=== PATIENT | male | born 1945 | race Caucasian/White ===

== ENCOUNTER 2016-06-17 13:55 | Outpatient (CLI) | payer MEDICARE ==
[2016-06-18 17:28] LABS: HIV (1/2) Antibody/Antigen Non-Reactive (NonReactive); HIV 1/2 INDEX 0.11 S/CO (<1.00)
[2016-06-20 16:21] LABS: Chlamydia by PCR Not Detected (NotDetected); GC by PCR Not Detected (NotDetected)
== END 2016-06-17 13:56 | disposition home or self-care (01) ==
LOC: MADLAB 13:55
PROVIDERS: ATTEND Family Medicine
DX: Z11.3 Encounter for screening for infections with a predominantly sexual mode of transmission (principal)
CPT/HCPCS: 36415; 86592; 87389; 87491; 87591

== ENCOUNTER 2017-07-17 13:13 | Emergency (ER) | payer MEDICARE ==
[~2017-07-17 13:13] MED LIST: Sodium Chloride 0.9% 1,000 ML BAG ONE
[2017-07-17 14:17] LABS: #Basophils 0.1 thou/uL (0.0-0.2); #Eosinphils 0.1 thou/uL (0.0-0.7); #Lymphocytes 0.9 thou/uL (1.20-3.40); #Monocytes 0.8 thou/uL (0.11-0.59); #Neutrophils 4.8 thou/uL (1.40-6.50); %Basophils 1.1 % (0.0-1.0); %Eosinophils 1.1 % (0.0-10.0); %Monocytes 11.3 % (0.0-10.0); %Neutrophils 72.5 % (42.0-75.0); Mean Corpuscular HGB CONC 34.3 g/dL (32.0-36.0); Mean Corpuscular Hemoglobin 31.2 pg (27.0-31.0); Mean Corpuscular Volume 90.9 fl (80.0-94.0); Mean Platelet Volume 6.7 fL (7.4-10.4); Platelet Count 194 thou/uL (130-400); RBC Distribution Width 11.9 % (11.5-14.5); Red Blood Cell (RBC) Count 4.16 mill/uL (4.70-6.10); White Blood Cell (WBC) Count 6.6 thou/uL (4.8-10.8)
[2017-07-17] MEDS ORDERED: Dexamethasone 4 MG TAB ONE (14:19)
[2017-07-17] MEDS ORDERED: Phenergan/Codeine 10-6.25mg/5ml UDCUP ONE (14:19)
[2017-07-17] MEDS ORDERED: AMOXicillin 250 MG CAP ONE (14:19)
[2017-07-17 14:21] LABS: PTT 30.1 SEC (22.9-36.1); Prothrombin Time 13.3 SEC (12.0-14.7)
[2017-07-17 14:32] LABS: ALT (SGPT) 20 U/L (8-55); AST (SGOT) 32 U/L (5-34); Albumin 4.1 g/dL (3.4-4.8); Alkaline Phosphatase 49 U/L (40-150); Anion Gap 14 mmol/L (10-20); BUN (Urea Nitrogen) 10 mg/dL (8.4-25.7); Bilirubin, Total 0.7 mg/dL (0.2-1.2); CK (CPK) 756 U/L (30-200); Calc. Creatinine Clearance 0 mL/min (70-130); Calcium 9.1 mg/dL (7.8-10.44); Carbon Dioxide 22 mmol/L (23-31); Chloride 99 mmol/L (98-107); Estimated GFR-MDRD 65; Globulin 2.4 g/dL (2.4-3.5); Glucose 99 mg/dL (80-115); Potassium 4.3 mmol/L (3.5-5.1); Protein, Total 6.5 g/dL (5.8-8.1); Sodium 131 mmol/L (136-145)
[2017-07-17 14:33] LABS: CKMB 3.2 ng/mL (0-6.6); Troponin I 0.014 ng/mL (< 0.028)
--- NOTE | 2017-07-17 15:23 | RAD ---
PA AND LATERAL VIEWS OF CHEST: Date: 07/17/17 FINDINGS: Comparison made with exam of 11/08/14. The heart size is normal. There is continued elevation of the right hemidiaphragm. No focal areas of consolidation, pneumothoraces, or pleural effusions are identified. No acute osseous abnormalities ar e seen. IMPRESSION: No radiographic evidence of acute cardiopulmonary process. POS: [facility]
[2017-07-17] MEDS ORDERED: Ondansetron HCl/PF 4 MG/2 ML Vial ONE (15:42)
== END 2017-07-17 16:26 | disposition short-term general hospital (02) ==
LOC: MADERS 13:13
DX: J10.1 Influenza due to other identified influenza virus with other respiratory manifestations (principal); R55 Syncope and collapse; I10 Essential (primary) hypertension; F17.290 Nicotine dependence, other tobacco product, uncomplicated
CPT/HCPCS: 36415; 71046; 80053; 82550; 82553; 83880; 84484; 85025; 85610; 85730; 87081; 87430; 93005; 94760; 96360; J2405; J7050; J7620; J8540

== ENCOUNTER 2018-09-04 11:19 | Emergency (ER) | payer MEDICARE | END 2018-09-04 12:27 | disposition home or self-care (01) | LOC: MADERS 11:19 | DX: T78.40XA Allergy, unspecified, initial encounter (principal); I10 Essential (primary) hypertension; F17.210 Nicotine dependence, cigarettes, uncomplicated; Z79.899 Other long term (current) drug therapy | CPT/HCPCS: 99282 ==

== ENCOUNTER 2018-10-27 12:05 | Emergency (ER) | payer MEDICARE ==
[2018-10-27] MEDS ORDERED: Sodium Chloride 0.9% 100 ML ONE (12:43)
[2018-10-27] MEDS ORDERED: CEFAZOLIN 1 GM VIAL ONE (12:43)
[2018-10-27 13:02] LABS: #Basophils 0.1 thou/uL (0.0-0.2); #Eosinphils 0.1 thou/uL (0.0-0.7); #Lymphocytes 1.8 thou/uL (1.20-3.40); #Monocytes 0.9 thou/uL (0.11-0.59); #Neutrophils 9.9 thou/uL (1.40-6.50); %Basophils 0.4 % (0.0-1.0); %Lymphocytes 14.1 % (21.0-51.0); %Monocytes 6.9 % (0.0-10.0); %Neutrophils 77.6 % (42.0-75.0); Hemoglobin 13.9 g/dL (14.0-18.0); Mean Corpuscular HGB CONC 32.6 g/dL (32.0-36.0); Mean Corpuscular Hemoglobin 29.6 pg (27.0-31.0); Mean Corpuscular Volume 90.6 fL (78.0-98.0); Mean Platelet Volume 6.5 fL (7.4-10.4); Platelet Count 236 thou/uL (130-400); RBC Distribution Width 12.4 % (11.5-14.5); Red Blood Cell (RBC) Count 4.69 mill/uL (4.70-6.10); White Blood Cell (WBC) Count 12.7 thou/uL (4.8-10.8)
[2018-10-27 13:21] LABS: ALT (SGPT) 23 U/L (8-55); AST (SGOT) 22 U/L (5-34); Albumin 4.1 g/dL (3.4-4.8); Alkaline Phosphatase 61 U/L (40-150); Anion Gap 14 mmol/L (10-20); BUN (Urea Nitrogen) 13 mg/dL (8.4-25.7); Bilirubin, Total 0.6 mg/dL (0.2-1.2); Calc. Creatinine Clearance 0 mL/min (70-130); Calcium 9.7 mg/dL (7.8-10.44); Carbon Dioxide 26 mmol/L (23-31); Chloride 100 mmol/L (98-107); Estimated GFR-MDRD 44; Globulin 3.5 g/dL (2.4-3.5); Glucose 106 mg/dL (83-110); Potassium 3.9 mmol/L (3.5-5.1); Protein, Total 7.6 g/dL (5.8-8.1); Sodium 136 mmol/L (136-145)
== END 2018-10-27 15:21 | disposition short-term general hospital (02) ==
LOC: MADERS 12:05
DX: L03.116 Cellulitis of left lower limb (principal); F17.210 Nicotine dependence, cigarettes, uncomplicated
CPT/HCPCS: 36415; 80053; 83605; 85025; 87040; 96365; J0690; J3490

== ENCOUNTER 2019-06-24 23:00 | Emergency (ER) | payer MEDICARE ==
--- NOTE | 2019-06-24 23:33 | RAD ---
EXAM: Chest Two Views 06/24/2019 11:30 PM HISTORY: Cough COMPARISON: July 17, 2017 FINDINGS: Lungs: There is stable scarring within the right midlung. No airspace consolidation is evident. Heart: Normal in size and contour. Pulmonary vessels: Normal. Costophrenic angles: Clear. Pneumothorax: None. Osseous structures:Intact. Additional findings: None. IMPRESSION: No significant acute intrathoracic disease.
== END 2019-06-24 23:55 | disposition home or self-care (01) ==
LOC: MADERS 23:00
DX: R25.8 Other abnormal involuntary movements (principal); F41.9 Anxiety disorder, unspecified; T48.6X5A Adverse effect of antiasthmatics, initial encounter; I10 Essential (primary) hypertension; F17.210 Nicotine dependence, cigarettes, uncomplicated; F17.290 Nicotine dependence, other tobacco product, uncomplicated
CPT/HCPCS: 71046